=== PATIENT | female | born 1980 | race Caucasian/White ===

== ENCOUNTER 2020-11-02 13:54 | Outpatient (CLI) | payer BC ==
--- NOTE | 2020-11-02 17:23 | RAD ---
LUMBAR SPINE THREE VIEWS: History: Back pain. FINDINGS: Lumbar vertebrae maintain height and alignment. Loss of disc space height at L5-S1. The other disc sp aces are preserved. No evidence of spondylolisthesis or spondylolysis. IMPRESSION: Loss of disc space at L5-S1. Lumbar spine otherwise unremarkable. POS: [facility]W
--- NOTE | 2020-11-02 17:24 | RAD ---
THORACIC SPINE THREE VIEWS: History: Back pain. FINDINGS: Thoracic vertebra maintain normal height and alignment. Disc spaces are maintained. No significant de generative change. No lytic or blastic process. IMPRESSION: Unremarkable thoracic spine. POS: [facility]W
== END 2020-11-02 13:55 | disposition home or self-care (01) ==
LOC: NAV RAD 13:54
PROVIDERS: ATTEND Family Medicine
DX: M54.16 Radiculopathy, lumbar region (principal); M54.6 Pain in thoracic spine; M51.87 Other intervertebral disc disorders, lumbosacral region
CPT/HCPCS: 72072; 72100

== ENCOUNTER 2020-12-29 21:57 | Emergency (ER) | payer BC ==
[2020-12-29 22:13] LABS: #Basophils 0.1 thou/uL (0.0-0.2); #Eosinphils 0.6 thou/uL (0.0-0.7); #Lymphocytes 3.4 thou/uL (1.20-3.40); #Monocytes 0.8 thou/uL (0.11-0.59); #Neutrophils 2.9 thou/uL (1.40-6.50); %Basophils 1.5 % (0.0-1.0); %Eosinophils 7.4 % (0.0-10.0); %Lymphocytes 44.1 % (21.0-51.0); %Monocytes 9.9 % (0.0-10.0); %Neutrophils 37.1 % (42.0-75.0); Mean Corpuscular HGB CONC 31.6 g/dL (32.0-36.0); Mean Corpuscular Volume 97.9 fL (78.0-98.0); Mean Platelet Volume 8.7 fL (7.4-10.4); Platelet Count 243 thou/uL (130-400); RBC Distribution Width 12.1 % (11.5-14.5); White Blood Cell (WBC) Count 7.8 thou/uL (4.8-10.8)
[2020-12-29 22:34] LABS: ALT (SGPT) 33 U/L (8-55); AST (SGOT) 32 U/L (5-34); Albumin 4.2 g/dL (3.5-5.0); Alkaline Phosphatase 63 U/L (40-110); Anion Gap 12 mmol/L (10-20); BUN (Urea Nitrogen) 14 mg/dL (7.0-18.7); Bilirubin, Total 0.3 mg/dL (0.2-1.2); Calc. Creatinine Clearance 0 mL/min (70-130); Calcium 8.7 mg/dL (7.8-10.44); Carbon Dioxide 25 mmol/L (22-29); Chloride 102 mmol/L (98-107); Glucose 72 mg/dL (70-105); Lipase 36 U/L (8-78); Potassium 3.3 mmol/L (3.5-5.1); Protein, Total 7.2 g/dL (6.0-8.3); Sodium 136 mmol/L (136-145)
== END 2020-12-29 22:56 | disposition home or self-care (01) ==
LOC: NAV ERS 21:57
DX: M94.0 Chondrocostal junction syndrome [Tietze] (principal)
CPT/HCPCS: 71045; 80053; 83690; 84484; 85025; 93005

== ENCOUNTER 2021-09-26 09:08 | Emergency (ER) | payer BC ==
[2021-09-26] MEDS ORDERED: Ondansetron ODT 4 MG TAB ONE (09:39)
[2021-09-27 00:12] LABS: SARS-CoV-2 PCR by NAA Not Detected (NotDetected)
== END 2021-09-26 10:00 | disposition home or self-care (01) ==
LOC: NAV ERS 09:08
DX: J06.9 Acute upper respiratory infection, unspecified (principal); B34.9 Viral infection, unspecified; J32.9 Chronic sinusitis, unspecified; Z20.822 Contact with and (suspected) exposure to COVID-19
CPT/HCPCS: 87804; 99283; Q0162; U0003; U0005

== ENCOUNTER 2023-09-20 17:35 | Emergency (ER) | payer BC | END 2023-09-20 18:29 | disposition home or self-care (01) | LOC: NAV ERS 17:35 | DX: M79.605 Pain in left leg (principal) | CPT/HCPCS: 99283 ==

== ENCOUNTER 2023-12-25 15:55 | Emergency (ER) | payer BC ==
[~2023-12-25 15:55] MED LIST: Iopamidol 370 76% 100 ML VIAL ONE
[2023-12-25 16:27] LABS: #Basophils 0.1 thou/uL (0.0-0.2); #Eosinphils 0.2 thou/uL (0.0-0.7); #Lymphocytes 1.9 thou/uL (1.20-3.40); #Monocytes 0.6 thou/uL (0.11-0.59); #Neutrophils 4.6 thou/uL (1.40-6.50); %Basophils 1.3 % (0.0-1.0); %Eosinophils 2.5 % (0.0-10.0); %Monocytes 8.1 % (0.0-10.0); Hematocrit 42.6 % (36.0-47.0); Hemoglobin 13.6 g/dL (12.0-16.0); Mean Corpuscular Hemoglobin 31.9 pg (27.0-31.0); Mean Corpuscular Volume 99.6 fl (78.0-98.0); Mean Platelet Volume 8.7 fL (7.4-10.4); Platelet Count 206 10x3/uL (130-400); RBC Distribution Width 12.7 % (11.5-14.5); Red Blood Cell (RBC) Count 4.28 mill/uL (4.20-5.40); White Blood Cell (WBC) Count 7.4 10x3/uL (4.8-10.8)
[2023-12-25] MEDS ORDERED: Sodium Chloride 0.9% 1,000 ML ONE (16:42)
[2023-12-25] MEDS ORDERED: Lorazepam 2 MG/ML VIAL ONE (16:42)
[2023-12-25] MEDS ORDERED: Meclizine HCl 25 MG TAB ONE (16:42)
[2023-12-25 16:46] LABS: ALT (SGPT) 20 U/L (8-55); AST (SGOT) 24 U/L (5-34); Albumin 4.4 g/dL (3.5-5.0); Alkaline Phosphatase 71 U/L (40-110); Anion Gap 15 mmol/L (10-20); BUN (Urea Nitrogen) 12 mg/dL (7.0-18.7); Bilirubin, Total 0.6 mg/dL (0.2-1.2); Calc. Creatinine Clearance 0 mL/min (70-130); Calcium 9.1 mg/dL (7.8-10.44); Carbon Dioxide 24 mmol/L (22-29); Chloride 101 mmol/L (98-107); Estimated GFR 93; Globulin 3.2 g/dL (2.4-3.5); Glucose 82 mg/dL (70-105); Potassium 4.1 mmol/L (3.5-5.1); Protein, Total 7.6 g/dL (6.0-8.3); Sodium 136 mmol/L (136-145)
[2023-12-25 16:47] LABS: Troponin I Less than 0.010 ng/mL (< 0.028)
[2023-12-25] MEDS ORDERED: Aspirin 325 MG TAB ONE (17:29)
== END 2023-12-25 18:33 | disposition short-term general hospital (02) ==
LOC: NAV ERS 15:55
DX: R42 Dizziness and giddiness (principal)
CPT/HCPCS: 36416; 70450; 70496; 70498; 71045; 80053; 84484; 85025; 93005; 96374; J2060; J7050; Q9967